=== PATIENT | male | born 1985 | race Caucasian/White ===

== ENCOUNTER → 2023-02-04 | Outpatient (CLI) | payer OTHER | END | disposition home or self-care (01) | LOC: RAD 13:34 | PROVIDERS: ATTEND Nurse Practitioner Family | DX: R05.3 Chronic cough (principal); R51.9 Headache, unspecified; M79.641 Pain in right hand ==

== ENCOUNTER 2023-07-02 21:37 | Emergency (ER) | payer OTHER ==
[~2023-07-02] VITALS: Ht 187.9 cm; Wt 81.6 kg
[2023-07-02] MEDS ORDERED: AMOX-CLAV 875-1 EACH PO (22:18)
== END 2023-07-02 22:34 | disposition home or self-care (01) ==
LOC: ED 21:37
DX: H66.91 Otitis media, unspecified, right ear (principal); F17.290 Nicotine dependence, other tobacco product, uncomplicated